=== PATIENT | male | born 1970 | race African-American/Black ===

== ENCOUNTER 2021-06-18 07:51 | Emergency (ER) | payer BC, OTHER ==
[~2021-06-18] VITALS: Ht 175.3 cm; Wt 95.0 kg
[2021-06-18] MEDS ORDERED: DEXAMETHASONE 10 MG/ML VIAL IV ONE (08:30)
[2021-06-18] MEDS ORDERED: KETOROLAC 60MG/2ML VIAL IM ONE (08:30)
[2021-06-18] MEDS ORDERED: HYDROCODONE/ACETAMINOPHEN 5/325MG TABLET PO ONE (08:30)
[2021-06-18] MEDS ORDERED: LIDOCAINE 5% PATCH TOP SCH (09:00)
[2021-06-18] MEDS ORDERED: BACL-141 MT (09:11)
[2021-06-18] MEDS ORDERED: LIDO700A15 TP (09:11)
[2021-06-18] MEDS ORDERED: ACET-2708 MT (09:11)
[2021-06-18] MEDS ORDERED: IBUP-2029 MT (09:11)
[2021-06-18 09:27] VITALS: BP 114/88
[2021-06-18 09:48] LABS: *AMPHETAMINES SCREEN URINE NEGATIVE (NEGATIVE)
[2021-06-18 09:49] LABS: *BARBITURATES SCREEN URINE NEGATIVE (NEGATIVE); *BENZODIAZEPINES SCREEN URINE NEGATIVE (NEGATIVE); *COCAINE SCREEN URINE NEGATIVE (NEGATIVE); METHADONE URINE SCREEN NEGATIVE (NEGATIVE); OPIATES URINE SCREEN NEGATIVE (NEGATIVE); PHENCYCLIDINE URINE SCREEN NEGATIVE (NEGATIVE)
[2021-06-18 09:50] LABS: CANNABINOID URINE SCREEN PRESUMTIVE POSITIVE (NEGATIVE)
== END 2021-06-18 09:29 | disposition home or self-care (01) ==
LOC: ER 07:51
DX: G89.29 Other chronic pain (principal); M54.9 Dorsalgia, unspecified; M54.31 Sciatica, right side; F17.200 Nicotine dependence, unspecified, uncomplicated; I10 Essential (primary) hypertension; Z13.9 Encounter for screening, unspecified
CPT/HCPCS: 80305; 96372; 96374; 99283; J1100; J1885

== ENCOUNTER 2022-01-17 16:45 | Emergency (ER) | payer BC, OTHER ==
[~2022-01-17] VITALS: Ht 175.3 cm; Wt 100.0 kg
[~2022-01-17 16:45] MED LIST: ACET-2708 MT; BACL-141 MT; IBUP-2029 MT; LIDO700A15 TP
[2022-01-17 18:07] LABS: BASOPHILS % 0.4 % (0.0-2.0); EOSINOPHILS % 1.6 % (0.0-5.0); HEMATOCRIT. 37.1 % (42.0-52.0); HEMOGLOBIN. 12.7 g/dL (14.0-18.0); LYMPHOCYTES % 26.1 % (20.0-50.0); MEAN CORPUSCULAR HEMOGLOBIN 32.3 pg (28.0-32.0); MEAN PLATELET VOLUME 7.7 fl (7.4-10.4); MONOCYTES % 8.7 % (2.0-8.0); NEUTROPHILS % 63.2 % (40.0-76.0); PLATELET 269 x1000/uL (130-400); RED BLOOD CELL COUNT 3.95 mill/uL (4.7-6.1); RED CELL DISTRIBUTION WIDTH 13.5 % (11.6-14.6)
[2022-01-17] MEDS ORDERED: CEFTRIAXONE SODIUM 500 MG/VIAL IM ONE (18:45)
[2022-01-17] MEDS ORDERED: KETOROLAC 30MG/ML VIAL IM ONE (18:45)
[2022-01-17] MEDS ORDERED: DOXY100C5 MT (18:46)
[2022-01-17 19:15] VITALS: BP 156/96
[2022-01-17 19:28] LABS: CHLORIDE 105 mEq/L (98-107)
[2022-01-17 19:33] LABS: CLARITY URINE CLEAR (CLEAR); COLOR URINE YELLOW (YELLOW); KETONES URINE TRACE (NEGATIVE); LEUKOCYTE ESTERASE URINE 2+ (NEGATIVE); NITRITE URINE NEGATIVE (NEGATIVE); OCCULT BLOOD URINE NEGATIVE (NEGATIVE); PROTEIN URINE NEGATIVE (NEGATIVE); SPECIFIC GRAVITY URINE 1.027 (1.005-1.030)
[2022-01-21 04:07] LABS: NEISSERIA GONORRHOEAE NAA Negative (Negative)
== END 2022-01-17 19:29 | disposition home or self-care (01) ==
LOC: ER 16:45
DX: R36.9 Urethral discharge, unspecified (principal); A64 Unspecified sexually transmitted disease; M54.50 Low back pain, unspecified; I10 Essential (primary) hypertension; Z79.899 Other long term (current) drug therapy
CPT/HCPCS: 36415; 80053; 81003; 83690; 85025; 87491; 87591; 96372; 99284; J0696; J1885; Z7610

== ENCOUNTER 2022-04-09 14:46 | Emergency (ER) | payer MEDICAID, OTHER ==
[~2022-04-09] VITALS: Ht 172.7 cm; Wt 80.0 kg
[~2022-04-09 14:46] MED LIST changes: +DOXY100C5 MT
[2022-04-09] MEDS ORDERED: ACETAMINOPHEN WITH CODEINE 300/30MG TABLET PO ONE (15:15)
[2022-04-09] MEDS ORDERED: LIDOCAINE HCL/PF 1% 10 MG/ML 5ML VIAL INFIL ONE (15:15)
[2022-04-09] MEDS ORDERED: TETANUS, DIPHTHERIA, PERTUSSIS VAC/PF 0.5ML (>10YR OLD) IM ONE ×2 (15:15→16:30)
[2022-04-09] MEDS ORDERED: BACITRACIN ZINC OINT UDPKT TOP ONE (15:15)
[2022-04-09] MEDS ORDERED: ACETAMINOPHEN WITH CODEINE 300/30MG TABLET PO NR (16:30)
[2022-04-09] MEDS ORDERED: LIDOCAINE HCL/PF 1% 10 MG/ML 5ML VIAL INFIL NR (16:30)
[2022-04-09] MEDS ORDERED: BACITRACIN ZINC OINT UDPKT TOP NR (16:30)
[2022-04-09 17:53] VITALS: BP 156/88
== END 2022-04-09 17:55 | disposition home or self-care (01) ==
LOC: ER 14:46
DX: S61.210A Laceration without foreign body of right index finger without damage to nail, initial encounter (principal); I10 Essential (primary) hypertension; M54.30 Sciatica, unspecified side; W26.8XXA Contact with other sharp object(s), not elsewhere classified, initial encounter; Y93.89 Activity, other specified; Y92.9 Unspecified place or not applicable
CPT/HCPCS: 12001; 73140; 90471; 90715; 99283; J3490

== ENCOUNTER 2022-04-23 15:22 | Emergency (ER) | payer OTHER ==
[~2022-04-23] VITALS: Ht 175.3 cm; Wt 98.0 kg
[2022-04-23 15:29] VITALS: BP 147/98
== END 2022-04-23 16:51 | disposition home or self-care (01) ==
LOC: ER 15:22
DX: Z48.00 Encounter for change or removal of nonsurgical wound dressing (principal); I10 Essential (primary) hypertension; M54.30 Sciatica, unspecified side
CPT/HCPCS: 99281

== ENCOUNTER 2022-12-20 13:28 | Emergency (ER) | payer MEDICAID, OTHER ==
[~2022-12-20] VITALS: Ht 175.3 cm; Wt 95.0 kg
[2022-12-20] MEDS ORDERED: ACETAMINOPHEN 325MG TABLET PO ONE (14:15)
[2022-12-20] MEDS ORDERED: IBUPROFEN 600MG TABLET PO ONE (14:15)
[2022-12-20 14:25] VITALS: BP 134/88
[2022-12-20] MEDS ORDERED: IBUP-2028 MT (14:28)
[2022-12-20] MEDS ORDERED: METH-653 MT (14:28)
== END 2022-12-20 14:49 | disposition home or self-care (01) ==
LOC: ER 14:03
DX: M79.18 Myalgia, other site (principal); I10 Essential (primary) hypertension; M54.30 Sciatica, unspecified side
CPT/HCPCS: 99283

== ENCOUNTER 2023-12-25 05:22 | Emergency (ER) | payer MEDICAID, OTHER ==
[~2023-12-25] VITALS: Ht 177.8 cm; Wt 88.9 kg
[~2023-12-25 05:22] MED LIST changes: +IBUP-2028 MT; +METH-653 MT
[2023-12-25 06:21] VITALS: O2SAT 100
[2023-12-25] MEDS ORDERED: IBUP-2029 MT (09:07)
[2023-12-25] MEDS ORDERED: LIDO700A15 TP (09:07)
[2023-12-25] MEDS ORDERED: METH-653 MT (09:07)
[2023-12-25] MEDS: KETOROLAC 30MG/ML VIAL IM ONE (09:45)
[2023-12-25] MEDS: METHOCARBAMOL 500MG TABLET PO ONE (09:45)
[2023-12-25 10:11] VITALS: BP 147/96; PULSE 85; RESP 16; TEMP 98.9
== END 2023-12-25 10:16 | disposition home or self-care (01) ==
LOC: ER 05:22
DX: S33.5XXA Sprain of ligaments of lumbar spine, initial encounter (principal); I10 Essential (primary) hypertension; X58.XXXA Exposure to other specified factors, initial encounter; Y93.89 Activity, other specified; Y92.89 Other specified places as the place of occurrence of the external cause; Y99.8 Other external cause status
CPT/HCPCS: 96372; 99283; J1885; Z7610

== ENCOUNTER 2024-10-04 17:22 | Emergency (ER) | payer MEDICAID, OTHER ==
[~2024-10-04] VITALS: Ht 175.3 cm; Wt 92.0 kg
[2024-10-04 17:53] VITALS: O2SAT 100
[2024-10-04] MEDS: KETOROLAC 30MG/ML VIAL IM ONE (18:15)
[2024-10-04] MEDS: LIDOCAINE 5% PATCH TOP NR (19:15)
[2024-10-04] MEDS ORDERED: METH-653 MT (20:34)
[2024-10-04 20:45] VITALS: BP 129/75; PULSE 82; RESP 20; TEMP 36.72516; O2SAT 100
== END 2024-10-04 20:45 | disposition home or self-care (01) ==
LOC: ER 17:22
DX: G89.29 Other chronic pain (principal); M54.9 Dorsalgia, unspecified; I10 Essential (primary) hypertension; Z77.098 Contact with and (suspected) exposure to other hazardous, chiefly nonmedicinal, chemicals; Z79.899 Other long term (current) drug therapy
CPT/HCPCS: 99285; 71045; 96372; J1885